=== PATIENT | male | born 1935 | race Caucasian/White ===

== ENCOUNTER 2017-04-26 17:44 | Emergency (ER) | payer MEDICARE ==
[~2017-04-26] VITALS: Ht 172.7 cm; Wt 79.4 kg
[2017-04-26 18:19] VITALS: BP 148/99
--- OUTSIDE RECORDS SUMMARY | 2017-05-25 04:56 | External Medical Summary Rpt ---
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 L CC XXX NOTAP complet VC-aCnc 017 NOT ed 21:18 APPLICA BLE L Bacteria Ur Cult (04-19-2017 12:04) Bacteri [id number] complet a XXX 017 9 ed Anaerob 12:04 normal e+Aerob carmen e Cult (findin g) SCT UMXF Mixed urogeni ashtyn or skin carmen present . Suggest appropr iate recolle ction with timely deliver y to the laborat or, if clinica lly indicat ed. L Bacteri CFUG1 complet a XXX 017 >100,00 ed Anaerob 12:04 0 e+Aerob cfu/ml e Cult L CC XXX NOTAP complet VC-aCnc 017 NOT ed 12:04 APPLICA BLE L Phosphate SerPl-mCnc (04-19-2017 10:22) Phospha 2.2 2.5-4.5 complet te 017 mg/dL ed SerPl-m 10:22 Cnc Magnesium SerPl-mCnc (04-19-2017 10:22) Magnesi 2.1 1.9-2.4 complet um 017 mg/dL ed SerPl-m 10:22 Cnc
--- OUTSIDE RECORDS SUMMARY | 2017-05-25 04:56 | External Medical Summary Rpt ---
Demographics Preferred Language Wallisian Marital Status Unknown Zoroastrianism Affiliation Unknown Race Unknown Ethnic Group Unknown Author Author , OCTAVIO CUNNINGHAM Address Unknown Phone [email or web address] Immunization Name Date Rout CVX Reac Dose Comm Prov Is Faci e tion ent ider Refu lity Give sed n Td 03-0 9 999 Hist H149 No H149 (melissa 7-19 [facility] lt), 97 al Info adso rmat rbed ion - Sour ce Unsp ecif ied
--- OUTSIDE RECORDS SUMMARY | 2017-05-25 04:56 | External Medical Summary Rpt ---
Demographics Preferred Language Northern Irish Marital Status Unknown Druze Affiliation Unknown Race Unknown Ethnic Group Unknown Author Author , OCTAVIO CUNNINGHAM Address Unknown Phone [email or web address] Immunization Name Date Rout CVX Reac Dose Comm Prov Is Faci e tion ent ider Refu lity Give sed n Td 03-0 9 999 Hist H149 No H149 (melissa 7-19 [facility] lt), 97 al Info adso rmat rbed ion - Sour ce Unsp ecif ied
--- OUTSIDE RECORDS SUMMARY | 2017-05-25 04:56 | External Medical Summary Rpt ---
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 L CC XXX NOTAP complet VC-aCnc 017 NOT ed 21:18 APPLICA BLE L Bacteria Ur Cult (04-19-2017 12:04) Bacteri [id number] complet a XXX 017 9 ed Anaerob [...]
== END 2017-04-26 18:22 | disposition left against medical advice (07) ==
LOC: UTC 17:44
DX: Z53.29 Procedure and treatment not carried out because of patient's decision for other reasons (principal)

== ENCOUNTER → 2017-05-11 | Outpatient (CLI) | payer MEDICARE | LOC: LAB 09:04 | DX: N40.0 Benign prostatic hyperplasia without lower urinary tract symptoms (principal) ==

== ENCOUNTER → 2017-06-02 | Outpatient (CLI) | payer MEDICARE | LOC: LAB 11:32 | DX: N40.0 Benign prostatic hyperplasia without lower urinary tract symptoms (principal) ==